=== PATIENT | female | born 1955 | race Caucasian/White ===

== ENCOUNTER 2018-12-17 12:16 | Emergency (ER) | payer SELFPAY ==
[~2018-12-17] VITALS: Ht 160 cm; Wt 63.5 kg
[2018-12-17 12:29] VITALS: BP 144/74
--- NOTE | 2018-12-17 12:34 | NUR ---
PATIENT AMBULATED TO BED 8
--- NOTE | 2018-12-17 12:40 | NUR ---
63/F BIB DAUGHTER C/O 04/05 HEADACHE BODY ACHES, FEVER, COUGH, AND RHINORRHEA. PT AFEBRILE AT THIS TIME WITH ORAL TEMP OF 98.8. MEDHX:HTN, HLD, RI.PATIENT POSITIONED FOR COMFORT; HOB ELEVATED; BEDRAILS UP X2; BED DOWN. ER MD MADE AWARE OF PT STATUS.
[2018-12-17 13:19] VITALS: BP 140/78
--- NOTE | 2018-12-17 13:20 | NUR ---
DR NORRIS AT BEDSIDE
--- NOTE | 2018-12-17 13:21 | NUR ---
Patient discharged with v/s stable. Written and verbal after care instructions given and explained. Patient alert, oriented and verbalized understanding of instructions. Ambulatory with steady gait. All questions addressed prior to discharge. ID band removed. Patient advised to follow up with PMD. Rx of LEVAQUIN, PROMETHAZINE given. Patient educated on indication of medication including possible reaction and side effects. Opportunity to ask questions provided and answered.
--- NOTE | 2018-12-17 13:22 | NUR ---
DR NORRIS DISCHARGED PT
--- NOTE | 2018-12-17 13:24 | NUR ---
Patient discharged with v/s stable. Written and verbal after care instructions given and explained. Patient alert, oriented and verbalized understanding of instructions. Ambulatory with steady gait. All questions addressed prior to discharge. ID band removed. Patient advised to follow up with PMD. Rx of PROMETHAZINE, AUGMENTIN given. Patient educated on indication of medication including possible reaction and side effects. Opportunity to ask questions provided and answered.
== END 2018-12-17 13:24 | disposition home or self-care (01) ==
LOC: MED 12:16
DX: J06.9 Acute upper respiratory infection, unspecified (principal); I10 Essential (primary) hypertension; I25.2 Old myocardial infarction; Z85.41 Personal history of malignant neoplasm of cervix uteri; Z90.710 Acquired absence of both cervix and uterus
CPT/HCPCS: 99283